=== PATIENT | female | born 1975 | race Caucasian/White ===

== ENCOUNTER 2018-05-01 06:20 | Day surgery (SDC) | payer OTHER ==
[2018-05-01] MEDS ORDERED: SIMETHICONE 40 MG/0.6 ML ML ONE (06:51)
[2018-05-01] MEDS ORDERED: MEPERIDINE HCL/PF 100 MG/ML AMP ONE (06:52)
[2018-05-01 07:08] LABS: HCG,QUAL RESULT NEGATIVE (NEGATIVE)
[2018-05-01] MEDS: MIDAZOLAM HCL 5 MG/5 ML VIAL ONE ×4 (08:22→08:36)
[2018-05-01 11:23] VITALS: BP_SYST 129
== END 2018-05-01 09:45 | disposition home or self-care (01) ==
LOC: SDS 06:20 → SMU 06:20 → SDS 09:45
PROVIDERS: ATTEND Internal Medicine Gastroenterology
DX: K21.0 Gastro-esophageal reflux disease with esophagitis (principal); K44.9 Diaphragmatic hernia without obstruction or gangrene; K29.60 Other gastritis without bleeding; Z68.41 Body mass index [BMI] 40.0-44.9, adult
CPT/HCPCS: 36415; 43239; 84703; 87081; 88305; 88312; 88313; J2175; J2250

== ENCOUNTER 2018-12-16 13:29 | Emergency (ER) | payer OTHER ==
[~2018-12-16] VITALS: Ht 165.1 cm; Wt 113.4 kg
[2018-12-16 13:30] VITALS: BP_SYST 160
[2018-12-16 14:14] LABS: BASOPHILS # (AUTO) 0.1 K/uL (0.0-0.2); BASOPHILS % (AUTO) 0.6 % (0.0-2.0); EOSINOPHILS # (AUTO) 0.1 K/uL (0.0-0.4); EOSINOPHILS % (AUTO) 1.6 % (0.0-4.0); HEMATOCRIT 36.4 % (36-48); LYMPHOCYTES # (AUTO) 2.1 K/uL (1.0-5.5); LYMPHOCYTES % (AUTO) 23.3 % (20.5-51.5); MEAN CORPUSCULAR HEMOGLOBIN 28 pg (27-31); MEAN CORPUSCULAR HGB CONC 33 % (32-36); MEAN CORPUSCULAR VOLUME 84 fL (79.0-98.0); MONOCYTES # (AUTO) 0.7 K/uL (0.0-1.0); MONOCYTES % (AUTO) 7.6 % (1.7-9.3); NEUTROPHILS # (AUTO) 6.1 K/uL (1.8-7.7); NEUTROPHILS % (AUTO) 66.9 % (40.0-70.0); PLATELET COUNT (AUTO) 473 K/uL (130-430); RED BLOOD CELL COUNT(AUTO) 4.33 MIL/uL (4.2-6.2); RED CELL DISTRIBUTION WIDTH 15.1 % (9.0-15.0); WHITE BLOOD COUNT (AUTO) 9.1 K/uL (4.8-10.8)
[2018-12-16 14:57] VITALS: BP_SYST 145
== END 2018-12-16 14:57 | disposition home or self-care (01) ==
LOC: SED 13:29
DX: K62.5 Hemorrhage of anus and rectum (principal); R03.0 Elevated blood-pressure reading, without diagnosis of hypertension
CPT/HCPCS: 36415; 85025; 99283

== ENCOUNTER 2019-03-19 06:00 | Day surgery (SDC) | payer OTHER ==
[~2019-03-19] VITALS: Ht 152.4 cm; Wt 117.9 kg
[2019-03-19 06:25] LABS: HCG,QUAL RESULT NEGATIVE (NEGATIVE)
[2019-03-19] MEDS ORDERED: MEPERIDINE HCL/PF 100 MG/ML AMP ONE (06:51)
[2019-03-19] MEDS ORDERED: SIMETHICONE 40 MG/0.6 ML ML ONE (06:52)
[2019-03-19] MEDS ORDERED: MIDAZOLAM HCL 5 MG/5 ML VIAL ONE (06:52)
[2019-03-19] MEDS: MIDAZOLAM HCL 5 MG/5 ML VIAL ONE ×4 (07:01→07:17)
[2019-03-19 10:19] VITALS: BP_SYST 125
== END 2019-03-19 08:50 | disposition home or self-care (01) ==
LOC: SDS 06:00 → SMU 06:00 → SDS 08:50
PROVIDERS: ATTEND Internal Medicine Gastroenterology
DX: K62.5 Hemorrhage of anus and rectum (principal); K62.1 Rectal polyp; K64.8 Other hemorrhoids; K21.9 Gastro-esophageal reflux disease without esophagitis; Z86.010 Personal history of colon polyps
CPT/HCPCS: 45380; 84703; 88305; J2175; J2250; 43239